=== PATIENT | female | born 1945 | race Caucasian/White ===

== ENCOUNTER → 2025-01-06 | Outpatient (CLI) | payer OTHER ==
--- NOTE | 2025-01-06 17:05 | HMCIMG ---
EXAM: XR Right Hip, 3 Views. CLINICAL HISTORY: 79 year old female with pain in right hip. COMPARISON: None provided. FINDINGS: BONES: No acute fracture or focal osseous lesion. 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 JOINTS: No dislocation. The joint spaces are normal. SOFT TISSUES: The soft tissues are unremarkable. IMPRESSION: 1. 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 /[place]
== END | disposition home or self-care (01) ==
LOC: RAH 15:27
PROVIDERS: ATTEND Internal Medicine
DX: M25.551 Pain in right hip (principal); Z96.641 Presence of right artificial hip joint
CPT/HCPCS: 73502

== ENCOUNTER → 2025-03-02 | Outpatient (CLI) | payer OTHER ==
--- NOTE | 2025-03-03 08:15 | HMCIMG ---
BILATERAL BREAST ULTRASOUND: CLINICAL HISTORY: Dense breast, prior mammogram from outside facility from 2 weeks ago is not available. Finding: Real-time examination of the both breasts demonstrates heterogeneous echotexture throughout both the breasts without evidence of focal solid or cystic masses. There are multiple benign axillary lymph nodes the largest on the right measuring 2.4 x 1.1 cm and the largest the left measuring 2.7 x 1.0 cm. IMPRESSION: Dense breasts with no hypoechoic mass. I would recommend annual mammography with tomography with bilateral breast sonogram. FINAL ASSESSMENT: ACR: BI-RAD- 2. Benign: Also a negative assessment; finding(s) benign abnormalities. Management: Routine mammography screening. Likelihood of Cancer: Essentially 0% likelihood of malignancy.
== END | disposition home or self-care (01) ==
LOC: RAH 14:45
PROVIDERS: ATTEND Internal Medicine
DX: R92.333 Mammographic heterogeneous density, bilateral breasts (principal)